=== PATIENT | male | born 1945 | race Caucasian/White ===

== ENCOUNTER 2018-10-01 10:44 | Emergency (ER) | payer OTHER ==
[~2018-10-01] VITALS: Ht 182.9 cm; Wt 81.7 kg
[~2018-10-01 10:44] MED LIST: ALBIPROI INH; ALBU3IS INH; ASPI81EC; BUDE6HFA; DIPASPER PO; DIPY25 PO; FLUSAL5005 IH; MELA3 PO; PANTOPRAZOLE; PRED20 PO; Prinivil10 MG PO; TELM80 PO; TIOT18 IH; Ventolin5 MG/1 ML IH; [UNRECOGNIZED DRUG - OTHER]
[2018-10-01 12:13] LABS: BASOPHILS ABSOLUTE AUTO 0.02 K/mm3 (0.00-0.23); BASOPHILS PERCENT AUTO 0 % (0-2); EOSINOPHILS ABSOLUTE AUTO 0.13 K/mm3 (0.00-0.68); EOSINOPHILS PERCENT AUTO 2 % (0-6); Hematocrit 35.3 % (37.0-53.0); Hemoglobin 10.5 g/dL (13.5-17.5); IMMATURE GRAN ABSOLUTE AUTO 0.02 K/mm3 (0.00-0.10); IMMATURE GRAN PERCENT AUTO 0 % (0-1); LYMPHOCYTES ABSOLUTE AUTO 0.84 K/mm3 (0.84-5.20); LYMPHOCYTES PERCENT AUTO 10 % (21-46); MONOCYTES ABSOLUTE AUTO 0.68 K/mm3 (0.16-1.47); MONOCYTES PERCENT AUTO 8 % (4-13); Mean Corpuscular HGB Conc 29.7 g/dL (31.5-36.5); Mean Corpuscular Volume 98 fL (80-100); Mean Platelet Volume 9.8 fL (9.1-12.4); NEUTROPHILS ABSOLUTE AUTO 6.66 K/mm3 (1.96-9.15); NEUTROPHILS PERCENT AUTO 80 % (41-73); Platelet Count 293 K/mm3 (150-400); RDW Coefficient Variation 12.5 % (11.7-14.2); RDW Standard Deviation 45.1 fL (35.1-46.3); Red Blood Cell Count 3.62 M/mm3 (4.30-5.90); White Blood Cell Count 8.35 K/mm3 (4.00-11.30)
[2018-10-01 12:47] LABS: Alanine Aminotransfer (ALT/SGP 20 U/L (12-78); Albumin, Blood 3.4 g/dL (3.4-5.0); Albumin/Globulin Ratio 0.9 (0.8-1.8); Alk Phos 81 U/L (50-136); Aspartate Aminotrans (AST/SGOT 10 U/L (12-37); Bilirubin, Total 0.3 mg/dL (0.1-1.0); Blood Urea Nitrogen 18 mg/dL (8-24); Bun/Creatinine Ratio 32.5 (12.0-20.0); Calcium, Blood 9.4 mg/dL (8.5-10.1); Chloride, Blood 90 mmol/L (98-108); Creatinine, Blood 0.55 mg/dL (0.60-1.20); Globulin, Blood 3.7 g/dL (2.2-4.0); Glomerular Filtration Rate >60 (60-); Glucose, Blood 111 mg/dL (70-99); Potassium, Blood 4.7 mmol/L (3.5-5.5); Sodium, Blood 134 mmol/L (136-145); Total Protein, Blood 7.1 g/dL (6.4-8.2)
[2018-10-01 12:51] LABS: Anion Gap Unable to Calculate mmol/L (6-16)
[2018-10-01 12:53] LABS: CO2, Blood >45 mmol/L (21-32)
[2018-10-01 14:07] LABS: Source, Urine Clean Catch
[2018-10-01 14:24] LABS: Influenza A Negative (NEGATIVE); Influenza B Negative (NEGATIVE)
[2018-10-01 14:26] LABS: Appearance, Urine Clear (Clear); Bilirubin, Urine Neg (Neg); Blood, Urine 1+ (Neg); Color, Urine Yellow (P-Yellow); Glucose Qualitative, Urine Neg (Neg); Ketones, Urine Neg (Neg); Leukocyte Esterase, Urine Neg (Neg); Nitrite, Urine Neg (Neg); Protein, Urine 1+ (Neg); Specific Gravity, Urine 1.005 (1.003-1.022); Urobilinogen, Urine NORM (Normal)
[2018-10-01 14:44] LABS: Bacteria Few /hpf; Red Blood Cells, Urine 0-2 /hpf (0-2); Squamous Epithelial Cells Not Seen /hpf (Few); White Blood Cells, Urine Not Seen /hpf (0-5)
[2018-10-02] MEDS ORDERED: AMLO5 PO (08:37)
[2018-10-02] MEDS ORDERED: ALBU3IS INH (08:39)
[2018-10-02] MEDS ORDERED: [UNRECOGNIZED DRUG - CODE] PO (09:11)
[2018-10-02] MEDS ORDERED: [UNRECOGNIZED DRUG - CODE] PO (09:14)
[2018-10-02] MEDS ORDERED: PANT40 PO (12:02)
== END 2018-10-01 16:18 | disposition home or self-care (01) ==
LOC: ER 10:44
PROVIDERS: Emergency Medicine; Physician Assistant
DX: J44.9 Chronic obstructive pulmonary disease, unspecified (principal); R06.89 Other abnormalities of breathing; J06.9 Acute upper respiratory infection, unspecified; Z86.73 Personal history of transient ischemic attack (TIA), and cerebral infarction without residual deficits; I10 Essential (primary) hypertension; Z88.5 Allergy status to narcotic agent; Z79.899 Other long term (current) drug therapy; Z79.82 Long term (current) use of aspirin
CPT/HCPCS: 36415; 71046; 80053; 81001; 83880; 85025; 87804; 93005; 93010; 99284-25; J7120

== ENCOUNTER 2018-10-02 07:05 | Inpatient (IN) | payer OTHER ==
[~2018-10-02] VITALS: Ht 175.3 cm; Wt 80.1 kg
[2018-10-02 07:22] LABS: PCO2 Arterial 98.5 mmHg (35-45); PO2 Arterial 154 mmHg (80-100)
[2018-10-02 07:34] LABS: BASOPHILS ABSOLUTE AUTO 0.02 K/mm3 (0.00-0.23); BASOPHILS PERCENT AUTO 0 % (0-2); EOSINOPHILS ABSOLUTE AUTO 0.06 K/mm3 (0.00-0.68); EOSINOPHILS PERCENT AUTO 1 % (0-6); Hematocrit 37.5 % (37.0-53.0); Hemoglobin 11.1 g/dL (13.5-17.5); IMMATURE GRAN ABSOLUTE AUTO 0.04 K/mm3 (0.00-0.10); IMMATURE GRAN PERCENT AUTO 0 % (0-1); LYMPHOCYTES ABSOLUTE AUTO 0.87 K/mm3 (0.84-5.20); LYMPHOCYTES PERCENT AUTO 7 % (21-46); MONOCYTES ABSOLUTE AUTO 0.78 K/mm3 (0.16-1.47); MONOCYTES PERCENT AUTO 7 % (4-13); Mean Corpuscular HGB 29.5 pg (26.0-34.0); Mean Corpuscular HGB Conc 29.6 g/dL (31.5-36.5); Mean Corpuscular Volume 100 fL (80-100); Mean Platelet Volume 9.8 fL (9.1-12.4); NEUTROPHILS PERCENT AUTO 85 % (41-73); Platelet Count 308 K/mm3 (150-400); RDW Coefficient Variation 12.5 % (11.7-14.2); RDW Standard Deviation 45.8 fL (35.1-46.3); Red Blood Cell Count 3.76 M/mm3 (4.30-5.90); White Blood Cell Count 12.07 K/mm3 (4.00-11.30)
[2018-10-02 07:55] LABS: Alanine Aminotransfer (ALT/SGP 21 U/L (12-78); Albumin, Blood 3.6 g/dL (3.4-5.0); Albumin/Globulin Ratio 0.9 (0.8-1.8); Alk Phos 88 U/L (50-136); Aspartate Aminotrans (AST/SGOT 14 U/L (12-37); Bilirubin, Total 0.2 mg/dL (0.1-1.0); Blood Urea Nitrogen 19 mg/dL (8-24); Bun/Creatinine Ratio 31.5 (12.0-20.0); Calcium, Blood 9.3 mg/dL (8.5-10.1); Chloride, Blood 89 mmol/L (98-108); Glomerular Filtration Rate >60 (60-); Glucose, Blood 121 mg/dL (70-99); Potassium, Blood 4.9 mmol/L (3.5-5.5); Sodium, Blood 137 mmol/L (136-145); Total Protein, Blood 7.6 g/dL (6.4-8.2); Troponin I <0.015 ng/mL (0.000-0.040)
[2018-10-02 08:10] LABS: Anion Gap Unable to Calculate mmol/L (6-16)
[2018-10-02 08:11] LABS: CO2, Blood >45 mmol/L (21-32)
[2018-10-02] MEDS ORDERED: AMLO5 PO (08:37)
[2018-10-02] MEDS ORDERED: ALBU3IS INH (08:39)
[2018-10-02] MEDS ORDERED: [UNRECOGNIZED DRUG - CODE] PO (09:11)
[2018-10-02] MEDS ORDERED: [UNRECOGNIZED DRUG - CODE] PO (09:14)
[2018-10-02] MEDS ORDERED: PANT40 PO (12:02)
--- NOTE | 2018-10-02 19:15 | NUR ---
PT ADMITTED THIS AFT. H/R REG, NO MURMER NOTED. PER TELE NSR. LUNGS TIGHT DIM. VERY LITTLE AIR MOVEMENT. DOING STABLE WITH VISION BIPAP. DESATS VERY QUICKLY. PASSED TO [facility]. BED IN LOW POSITIONK, CALL LITE IN REACH, CALLS APPROP. AT BEDSIDE.
--- NOTE | 2018-10-02 21:15 | NUR ---
REPORT RECEIVED FROM ARISTEO. PT TRANSFERRED FROM ROOM 353 TO 324 VIA WHEELCHAIR WITH ALL BELONGINGS. PT ALERT AND ORIENTED X3, NO DISTRESS NOTED.
--- NOTE | 2018-10-03 04:23 | NUR ---
72 Y/O MALE RESTED IN BED COMFORTABLY ALL EVENING WHILE WEARING C/PAP MACHINE WITH HIGH FLOW O2, O2 SATS 94%, NO ANXIETY, PAIN OR NAUSEA. PTS HAD OCCASIONAL PERIODS OF CONFUSION BEGINNING OF SHIFT WITH SALINE LOCKED PULLED OUT BY PATIENT. PT NON COMBATIVE. PTS TELEMETRY REFLECTS NSR WITH PACs. PTS CALL LIGHT AT SIDE, BED IN LOW POSITION.
[2018-10-03 05:28] LABS: Mean Corpuscular HGB 29.6 pg (26.0-34.0); Mean Corpuscular HGB Conc 30.3 g/dL (31.5-36.5); Mean Corpuscular Volume 98 fL (80-100); Mean Platelet Volume 10.2 fL (9.1-12.4); Platelet Count 289 K/mm3 (150-400); RDW Coefficient Variation 12.6 % (11.7-14.2); RDW Standard Deviation 44.9 fL (35.1-46.3); Red Blood Cell Count 3.38 M/mm3 (4.30-5.90)
[2018-10-03 06:00] LABS: Alanine Aminotransfer (ALT/SGP 22 U/L (12-78); Albumin, Blood 3.2 g/dL (3.4-5.0); Albumin/Globulin Ratio 0.9 (0.8-1.8); Alk Phos 74 U/L (50-136); Anion Gap 3 mmol/L (6-16); Aspartate Aminotrans (AST/SGOT 9 U/L (12-37); Bilirubin, Total 0.6 mg/dL (0.1-1.0); Blood Urea Nitrogen 22 mg/dL (8-24); Bun/Creatinine Ratio 36.4 (12.0-20.0); CO2, Blood 43 mmol/L (21-32); Calcium, Blood 9.2 mg/dL (8.5-10.1); Chloride, Blood 90 mmol/L (98-108); Creatinine, Blood 0.61 mg/dL (0.60-1.20); Globulin, Blood 3.6 g/dL (2.2-4.0); Glomerular Filtration Rate >60 (60-); Glucose, Blood 108 mg/dL (70-99); Potassium, Blood 3.9 mmol/L (3.5-5.5); Sodium, Blood 136 mmol/L (136-145); Total Protein, Blood 6.8 g/dL (6.4-8.2)
--- NOTE | 2018-10-03 17:44 | NUR ---
SHIFT SUMMARY PT SATING IN THE ON 4L O2 VIA NC. PT HAS DENIED SOB THIS SHIFT. NO OTHER CHANGES IN ASSESSMENT AT THIS TIME. PT HAS BEEN SINUS TACH THIS SHIFT. PT CURRENTLY AT 107. OTHER VITALS STABLE. PT LIKELY TO DC TOMORROW PER DR. MCKENZIE. WILL CONTINUE TO MONITOR UNTIL TURNOVER IS COMPLETE.
--- NOTE | 2018-10-04 03:56 | NUR ---
72 Y/O MALE RESTED IN BED COMFORTABLY ALL EVENING WHILE WEARING B/PAP AT 7L CONTINUOUS HIGH FLOW O2. PATS LUNG SOUNDS ARE TIGHT AND VERY DIMINISHED, NO COUGH OR ANXIETY. PT HAPPY AND COOPERATIVE. PT DENIES PAIN OR NAUSEA. PTS BED IN LOW POSITION, CALL LIGHT AT BEDSIDE. PT HAS BRUISIG TO RIGHT WRIST AREA FROM OLD IV STARTS THAT HEALING SLOWLY.
[2018-10-04 05:39] LABS: BASOPHILS ABSOLUTE AUTO 0.02 K/mm3 (0.00-0.23); BASOPHILS PERCENT AUTO 0 % (0-2); EOSINOPHILS ABSOLUTE AUTO 0.06 K/mm3 (0.00-0.68); EOSINOPHILS PERCENT AUTO 1 % (0-6); Hematocrit 31.7 % (37.0-53.0); Hemoglobin 9.8 g/dL (13.5-17.5); IMMATURE GRAN ABSOLUTE AUTO 0.03 K/mm3 (0.00-0.10); IMMATURE GRAN PERCENT AUTO 0 % (0-1); LYMPHOCYTES ABSOLUTE AUTO 1.71 K/mm3 (0.84-5.20); LYMPHOCYTES PERCENT AUTO 20 % (21-46); MONOCYTES ABSOLUTE AUTO 0.95 K/mm3 (0.16-1.47); MONOCYTES PERCENT AUTO 11 % (4-13); Mean Corpuscular HGB 29.1 pg (26.0-34.0); Mean Corpuscular HGB Conc 30.9 g/dL (31.5-36.5); Mean Platelet Volume 10.1 fL (9.1-12.4); NEUTROPHILS PERCENT AUTO 68 % (41-73); Platelet Count 311 K/mm3 (150-400); RDW Coefficient Variation 13.1 % (11.7-14.2); RDW Standard Deviation 44.9 fL (35.1-46.3); Red Blood Cell Count 3.37 M/mm3 (4.30-5.90); White Blood Cell Count 8.57 K/mm3 (4.00-11.30)
[2018-10-04 05:44] LABS: Mean Corpuscular Volume 94 fL (80-100)
[2018-10-04 06:05] LABS: Anion Gap 5 mmol/L (6-16); Blood Urea Nitrogen 27 mg/dL (8-24); Bun/Creatinine Ratio 31.2 (12.0-20.0); CO2, Blood 38 mmol/L (21-32); Calcium, Blood 9.3 mg/dL (8.5-10.1); Chloride, Blood 93 mmol/L (98-108); Creatinine, Blood 0.87 mg/dL (0.60-1.20); Glomerular Filtration Rate >60 (60-); Glucose, Blood 105 mg/dL (70-99); Potassium, Blood 4.1 mmol/L (3.5-5.5); Sodium, Blood 136 mmol/L (136-145)
[2018-10-04] MEDS ORDERED: ASPI81CH PO (14:23)
[2018-10-04] MEDS ORDERED: ACET325 PO (14:25)
[2018-10-04] MEDS ORDERED: Pulmicort0.5 MG/2 M INH (14:25)
[2018-10-04] MEDS ORDERED: PRED20 (14:28)
[2018-10-04] MEDS ORDERED: Flonase 0.05% N16 GM (14:29)
[2018-10-04] MEDS ORDERED: LEVO750 PO (14:30)
--- NOTE | 2018-10-04 16:04 | NUR ---
PT. DISCHARGED HOME WITH SPOUSE. HOME BI-PAP TO BE SET PER [facility]. HOME HEALTH TO FOLLOW.
== END 2018-10-04 16:04 | disposition home or self-care (01) | DRG 189 ==
LOC: ER 07:05 → ERHOLD 09:00 → MEDS 09:00 → ENPENDDIS 10-04 13:00 → MEDS 10-04 16:04
PROVIDERS: Emergency Medicine; ADMIT Family Medicine
DX: J96.21 Acute and chronic respiratory failure with hypoxia (principal); J44.1 Chronic obstructive pulmonary disease with (acute) exacerbation; J44.0 Chronic obstructive pulmonary disease with (acute) lower respiratory infection; J96.22 Acute and chronic respiratory failure with hypercapnia; J20.9 Acute bronchitis, unspecified; I10 Essential (primary) hypertension; G47.30 Sleep apnea, unspecified; N40.0 Benign prostatic hyperplasia without lower urinary tract symptoms; K21.9 Gastro-esophageal reflux disease without esophagitis; Z99.81 Dependence on supplemental oxygen; Z86.73 Personal history of transient ischemic attack (TIA), and cerebral infarction without residual deficits; Z87.891 Personal history of nicotine dependence; Z88.5 Allergy status to narcotic agent; Z79.82 Long term (current) use of aspirin; Z79.899 Other long term (current) drug therapy
CPT/HCPCS: 36415; 36600; 70450; 71045; 71046; 80048; 80053; 81001; 82375; 82803; 83880; 84484; 85025; 85027; 87804; 93005; 93010; 94640; 94644; 94660; 94762; 96374; 99284-25; 99285-25; J1650; J2920; J2930; J7120

== ENCOUNTER 2019-01-30 10:43 | Emergency (ER) | payer OTHER ==
[~2019-01-30] VITALS: Ht 175.3 cm; Wt 77.1 kg
[~2019-01-30 10:43] MED LIST changes: +ACET325 PO; +AMLO5 PO; +ASPI81CH PO; +Flonase 0.05% N16 GM; +LEVO750 PO; +PANT40 PO; +PRED10 PO; +PRED20; +Pulmicort0.5 MG/2 M INH; +[UNRECOGNIZED DRUG - CODE] PO; +[UNRECOGNIZED DRUG - CODE] PO
[2019-01-30 11:16] LABS: BASOPHILS ABSOLUTE AUTO 0.02 K/mm3 (0.00-0.23); BASOPHILS PERCENT AUTO 0 % (0-2); EOSINOPHILS ABSOLUTE AUTO 0.17 K/mm3 (0.00-0.68); EOSINOPHILS PERCENT AUTO 2 % (0-6); Hematocrit 38.9 % (37.0-53.0); Hemoglobin 11.7 g/dL (13.5-17.5); IMMATURE GRAN ABSOLUTE AUTO 0.01 K/mm3 (0.00-0.10); IMMATURE GRAN PERCENT AUTO 0 % (0-1); LYMPHOCYTES PERCENT AUTO 17 % (21-46); MONOCYTES PERCENT AUTO 8 % (4-13); Mean Corpuscular HGB 29.3 pg (26.0-34.0); Mean Corpuscular HGB Conc 30.1 g/dL (31.5-36.5); Mean Corpuscular Volume 97 fL (80-100); Mean Platelet Volume 9.8 fL (9.1-12.4); NEUTROPHILS ABSOLUTE AUTO 5.23 K/mm3 (1.96-9.15); NEUTROPHILS PERCENT AUTO 72 % (41-73); Platelet Count 291 K/mm3 (150-400); RDW Coefficient Variation 13.4 % (11.7-14.2); RDW Standard Deviation 47.7 fL (35.1-46.3); White Blood Cell Count 7.23 K/mm3 (4.00-11.30)
[2019-01-30 11:34] LABS: Alanine Aminotransfer (ALT/SGP 15 U/L (12-78); Albumin, Blood 3.2 g/dL (3.4-5.0); Albumin/Globulin Ratio 0.9 (0.8-1.8); Alk Phos 80 U/L (50-136); Aspartate Aminotrans (AST/SGOT 7 U/L (12-37); Bilirubin, Total 0.3 mg/dL (0.1-1.0); Blood Urea Nitrogen 17 mg/dL (8-24); Bun/Creatinine Ratio 26.5 (12.0-20.0); Calcium, Blood 8.7 mg/dL (8.5-10.1); Chloride, Blood 95 mmol/L (98-108); Creatinine, Blood 0.64 mg/dL (0.60-1.20); Globulin, Blood 3.4 g/dL (2.2-4.0); Glomerular Filtration Rate >60 (60-); Glucose, Blood 125 mg/dL (70-99); Potassium, Blood 4.3 mmol/L (3.5-5.5); Sodium, Blood 139 mmol/L (136-145); Total Protein, Blood 6.6 g/dL (6.4-8.2)
[2019-01-30 12:18] LABS: Anion Gap Unable to Calculate mmol/L (6-16)
[2019-01-30 12:19] LABS: CO2, Blood >45 mmol/L (21-32)
[2019-01-30] MEDS ORDERED: LEVA.63IS INH (12:44)
[2019-01-30] MEDS ORDERED: Prednisone20 MG PO (12:44)
== END 2019-01-30 14:36 | disposition home or self-care (01) ==
LOC: ER 10:43
PROVIDERS: Emergency Medicine
DX: J44.1 Chronic obstructive pulmonary disease with (acute) exacerbation (principal); Z88.5 Allergy status to narcotic agent; Z79.899 Other long term (current) drug therapy; Z79.82 Long term (current) use of aspirin; I10 Essential (primary) hypertension; J44.9 Chronic obstructive pulmonary disease, unspecified; K21.9 Gastro-esophageal reflux disease without esophagitis; Z86.73 Personal history of transient ischemic attack (TIA), and cerebral infarction without residual deficits
CPT/HCPCS: 36415; 71046; 80053; 83880; 85025; 93005; 93010; 99285-25